=== PATIENT | male | born 1955 | race Caucasian/White ===

== ENCOUNTER 2023-11-21 10:30 | Emergency (ER) | payer MEDICARE, SELFPAY ==
[2023-11-21 10:40] VITALS: BP 145/75; PULSE 88; RESP 14; TEMP 36.9; O2SAT 99; BMI 27.8
--- NOTE | 2023-11-21 10:46 | DI.RAD.S_ITS ---
PROCEDURE: XR ELBOW RT MIN 3V INDICATIONS: atraumtic pain / swelling TECHNIQUE: 3 views of the elbow were acquired. COMPARISON: None. FINDINGS: Bones: No fractures or dislocations. No suspicious bony lesions. Periarticular osteophyte formation at the elbow joint. Soft tissues: There is an elbow joint effusion. No suspicious soft tissue calcifications. IMPRESSION: 1. Osteoarthritis. 2. Elbow joint effusion. 3. No acute fracture. No osseous lesion. If symptoms and/or clinical suspicion for pathology persist, further assessment with repeat, or advanced imaging (e.g., CT, MRI, or bone scan) may be helpful for further assessment. Dictated by: Holger Marroquin M.D. on 11/21/2023 at 11:18 Approved by: Holger Marroquin M.D. on 11/21/2023 at 11:18
[2023-11-21] MEDS: IBUPROFEN 400 MG TABLET PO (10:48)
[2023-11-21] MEDS: ACETAMINOPHEN 325 MG TABLET 975 MG PO (10:48)
[2023-11-21] MEDS: ONDANSETRON 4 MG ODT PO (10:51)
--- NOTE | 2023-11-21 11:23 | DI.US.S_ITS ---
PROCEDURE: US PERIPH VENOUS UP EXTREM RT INDICATIONS: RUE pain, swelling TECHNIQUE: Real-time imaging, as well as color and pulse Doppler interrogation, was performed of the upper extremity deep veins from the inferior neck to the antecubital fossa. COMPARISON: None. FINDINGS: The internal jugular vein, visualized portions of the subclavian vein, axillary, and brachial veins are free of intraluminal thrombus. Where physically possible, the veins are normally compressible. Color and pulse Doppler demonstrate normal intraluminal flow, with expected phasicity and pulsatility. Additional scanning of the cephalic and basilic veins of the superficial system demonstrates normal compressibility, without thrombus. IMPRESSION: No findings of upper extremity deep venous thrombosis can be seen. Dictated by: Darlyn Poole M.D. on 11/21/2023 at 12:06 Approved by: Darlyn Poole M.D. on 11/21/2023 at 12:07
--- NOTE | 2023-11-21 11:51 | ED_ITS ---
HPI - Extremity Problem <Gretel Naylor PA-C - Last Filed: 11/21/23 14:12> General Chief complaint: Extremity Problem,Nontraumatic Stated complaint: extreme pain rt elbow Time Seen by Provider: 11/21/23 11:13 Source: patient Mode of arrival: Ambulatory History of Present Illness HPI Narrative: Patient is a 68-year-old male w/ history of HTN who presents with a 2 days of nontraumatic right elbow pain. He reports waking up yesterday and noting that his elbow hurt. He denies any trauma, fall, recent overuse of the joint. The pain bothered him all day and then was worse when he woke up this morning. Now it is quite severe. He had not taken any medication or tried any therapy prior to coming to the emergency room. He knows he has osteoarthritis in some of his joints, no history of gout, rheumatoid arthritis. He denies fever or chills. The pain is worst over the right olecranon and radiates up to the mid biceps and down to the mid forearm. He also thinks there is some pain that is creeping to wards his hand. He feels that his elbow is swollen. He recently had COVID starting 10 days ago, feeling much better. No history of blood clots. Related Data Home Medications Medication Instructions Recorded Confirmed B-complex with vitamin C 1 tab PO DAILY 07/23/23 11/21/23 hydrochlorothiazide 12.5 mg capsule 12.5 mg PO DAILY 07/23/23 11/21/23 losartan 25 mg tablet 25 mg PO DAILY 07/23/23 11/21/23 magnesium PO 07/23/23 11/21/23 multivitamin with iron [Daily PO 07/23/23 11/21/23 Vitamin with Iron] omega-3 fatty acids [Fish Oil] PO 07/23/23 11/21/23 vitamins A,C,B-msml-wyrbog 4,296 1 cap PO BID 07/23/23 11/21/23 mcg-226 mg-90 mg capsule (ICaps AREDS) Allergies Allergy/AdvReac Type Severity Reaction Status Date / Time hydrocodone AdvReac Nausea Verified 11/21/23 10:10 oxycodone AdvReac Nausea Verified 11/21/23 10:10 Review of Systems <Gretel Naylor PA-C - Last Filed: 11/21/23 14:12> Review of Systems ROS Unobtainable: All systems reviewed & are unremarkable except as noted in HPI and below Patient History <Gretel Naylor PA-C - Last Filed: 11/21/23 14:12> Medical History Benign essential HTN Social History Smoking Status: Never smoker Smoking Status: Never smoker alcohol intake frequency: 0-2 drinks per day Substance Use Type: does not use Exam <Gretel Naylor PA-C - Last Filed: 11/21/23 14:12> Narrative Exam Narrative: GENERAL: 68 year old patient appears stated age. Well-developed patient, in mild distress, holding the right arm. NEURO: AOx3. HEAD: Atraumatic. Normocephalic. EYES: Pupils equal round and reactive. Extraocular motions intact. No scleral icterus. No injection or drainage. ENT: Nose without bleeding or purulent drainage. Airway patent. RESPIRATORY: No distress. EXTREMITIES: Trace edema of the right elbow, no erythema or warmth noted. Tissues are supple. The elbow and arm just above and below are tender with gentle squeezing but not tender to light palpation. Most severe pain is over the olecranon. There is no discrete area of edema or hematoma. Radial pulse is strong. [employer] Resource [employer] strength is equal in both hands. Patient is elbow flexion is limited by pain and extension is limited by previously existing arthritis/pain. SKIN: No rash or erythema of visible areas Initial Vital Signs Initial Vital Signs: Vital Signs Temperature 98.4 F 11/21/23 10:40 Pulse Rate 88 11/21/23 10:40 Respiratory Rate 14 11/21/23 10:40 Blood Pressure 145/75 H 11/21/23 10:40 Pulse Oximetry 99 11/21/23 10:40 Oxygen Delivery Method Room Air 11/21/23 10:40 <Sharee Bales MD - Last Filed: 11/21/23 14:56> Initial Vital Signs Initial Vital Signs: Vital Signs Temperature 98.4 F 11/21/23 10:40 Pulse Rate 88 11/21/23 10:40 Respiratory Rate 14 11/21/23 10:40 Blood Pressure 145/75 H 11/21/23 10:40 Pulse Oximetry 99 11/21/23 10:40 Oxygen Delivery Method Room Air 11/21/23 10:40 Course <Gretel Naylor PA-C - Last Filed: 11/21/23 14:12> Orders Ordered: ED Orders 11/21/23 10:46 XR elbow RT min 3V Stat 11/21/23 11:23 US periph venous up extrem rt Stat Discontinued Medications Acetaminophen (Acetaminophen 325 Mg Tablet) 975 mg PO NOW ONE Stop: 11/21/23 10:46 Last Admin: 11/21/23 10:48 Dose: 975 mg Documented By: ELODIA Ibuprofen (Ibuprofen 400 Mg Tablet) 400 mg PO NOW ONE Stop: 11/21/23 10:46 Last Admin: 11/21/23 10:48 Dose: 400 mg Documented By: ELODIA Ondansetron HCl (Ondansetron 4 Mg Odt) 4 mg PO NOW ONE Stop: 11/21/23 10:50 Last Admin: 11/21/23 10:51 Dose: 4 mg Documented By: ELODIA Vital Signs Vital signs: Vital Signs - 8 hr 11/21/23 10:40 11/21/23 12:34 Temperature 98.4 F Pulse Rate 88 68 Respiratory Rate 14 16 Blood Pressure 145/75 H 144/66 H Pulse Oximetry 99 99 Oxygen Delivery Method Room Air Room Air <Sharee Bales MD - Last Filed: 11/21/23 14:56> Orders Ordered: ED Orders 11/21/23 10:46 XR elbow RT min 3V Stat 11/21/23 11:23 US periph venous up extrem rt Stat Discontinued Medications Acetaminophen (Acetaminophen 325 Mg Tablet) 975 mg PO NOW ONE Stop: 11/21/23 10:46 Last Admin: 11/21/23 10:48 Dose: 975 mg Documented By: ELODIA Ibuprofen (Ibuprofen 400 Mg Tablet) 400 mg PO NOW ONE Stop: 11/21/23 10:46 Last Admin: 11/21/23 10:48 Dose: 400 mg Documented By: ELODIA Ondansetron HCl (Ondansetron 4 Mg Odt) 4 mg PO NOW ONE Stop: 11/21/23 10:50 Last Admin: 11/21/23 10:51 Dose: 4 mg Documented By: ELODIA Vital Signs Vital signs: Vital Signs - 8 hr 11/21/23 10:40 11/21/23 12:34 Temperature 98.4 F Pulse Rate 88 68 Respiratory Rate 14 16 Blood Pressure 145/75 H 144/66 H Pulse Oximetry 99 99 Oxygen Delivery Method Room Air Room Air MDM - Extremity (Nontraumatic) <Gretel Naylor PA-C - Last Filed: 11/21/23 14:12> Imaging Data US - DVT: Radiologist's Impression: PROCEDURE: US PERIPH VENOUS UP EXTREM RT INDICATIONS: RUE pain, swelling TECHNIQUE: Real-time imaging, as well as color and pulse Doppler interrogation, was performed of the upper extremity deep veins from the inferior neck to the antecubital fossa. COMPARISON: None. FINDINGS: The internal jugular vein, visualized portions of the subclavian vein, axillary, and brachial veins are free of intraluminal thrombus. Where physically possible, the veins are normally compressible. Color and pulse Doppler demonstrate normal intraluminal flow, with expected phasicity and pulsatility. Additional scanning of the cephalic and basilic veins of the superficial system demonstrates normal compressibility, without thrombus. IMPRESSION: No findings of upper extremity deep venous thrombosis can be seen. Dictated by: Darlyn Poole M.D. on 11/21/2023 at 12:06 Approved by: Darlyn Poole M.D. on 11/21/2023 at 12:07 Extremity x-ray #1: Radiologist's Impression: PROCEDURE: XR ELBOW RT MIN 3V INDICATIONS: atraumtic pain / swelling TECHNIQUE: 3 views of the elbow were acquired. COMPARISON: None. FINDINGS: Bones: No fractures or dislocations. No suspicious bony lesions. Periarticular osteophyte formation at the elbow joint. Soft tissues: There is an elbow joint effusion. No suspicious soft tissue calcifications. IMPRESSION: 1. Osteoarthritis. 2. Elbow joint effusion. 3. No acute fracture. No osseous lesion. If symptoms and/or clinical suspicion for pathology persist, further assessment with repeat, or advanced imaging (e.g., CT, MRI, or bone scan) may be helpful for further assessment. Dictated by: Holger Marroquin M.D. on 11/21/2023 at 11:18 Approved by: Holger Marroquin M.D. on 11/21/2023 at 11:18 [facility] Narrative Medical decision making narrative: Multiple etiologies for patient's symptoms considered including, but not limited to: Fracture, dislocation, olecranon bursitis, gout, effusion, DVT (recovering from covid), unlikely septic joint X-rays without evidence of fracture, +joint effusion. Ultrasound without evidence of DVT. Suspect bursitis. Advised rest, ice, compression, elevation and NSAIDs. If worsening or if not improved after 10 days of conservative management, advised to follow up with the Orthopedics. Return precautions given and education provided regarding signs of infection. Patient and state understanding. Patient's symptoms improved over duration of stay with above-stated therapies. Findings and discharge diagnosis discussed with patient/family followed by verbalization of understanding Return precautions discussed with patient/family whom verbalize understanding of diagnosis and plan Discharge Plan Departure Patient Disposition: Home Clinical Impression: Bursitis of right elbow Qualifiers: Elbow bursitis location: olecranon bursitis Qualified Code(s): M70.21 - Olecranon bursitis, right elbow Instructions: DI for Elbow Bursitis Activity Restrictions/Additional Instructions: *You have been diagnosed with bursitis of the right elbow. This occurs when the bursa, which is a fluid-filled pocket that pads the joint, becomes swollen with fluid. This can be due to arthritis or an overuse injury. The treatment for bursitis is rest, gentle compression, NSAIDs and time. I would take ibuprofen 600 mg with milk or a small amount of food every 6 hours for pain. We will provide you with a compression bandage you can use which can decrease the swelling and provide comfort. You should not use your elbow as this will increase inflammation and pain. If this is not improving after conservative treatment for 10 days, you can follow up with Orthopedics, I have listed their contact information below. If you develop a fever or the area becomes red and hot, you should come back for reassessment, as the bursa can get infected if there is an opening. Today we did an x-ray which does not show any fracture but does show fluid in the elbow, and we did an ultrasound which ruled out a DVT or blood clot. *What to do: *Please continue to take your regular medications as directed. [ ] New medication prescriptions sent to your pharmacy: [ ] [ ] New medication written as a paper prescription [x] No new medications given *Please follow up with your primary care provider in 2-3 days, call for an appointment. Let them know you were seen in the Emergency Department and that we ask that you be seen in follow up. We will electronically transmit a record of today's note if your PCP is in our system *If you do not have a primary care provider please contact the [facility] Resource line at [phone]. They will ask some questions about your medical history and help get you set up with a doctor in the community. *Return to Emergency Department if you should have any new, worsening or concerning symptoms, such as [fever greater than 101 F, shaking chills, worsening pain, persistent vomiting or other concerning symptoms]. Prescriptions: No Action losartan 25 mg tablet 25 mg PO DAILY hydrochlorothiazide 12.5 mg capsule 12.5 mg PO DAILY magnesium PO B-complex with vitamin C Tablet 1 tab PO DAILY ICaps AREDS 4,296 mcg-226 mg-90 mg capsule 1 cap PO BID multivitamin with iron [Daily Vitamin with Iron] PO omega-3 fatty acids [Fish Oil] PO Referrals: [facility] [Provider Group] Linus Kolb DO [Primary Care Provider] - Stand Alone Forms: Patient Portal/API ED Sign-out <Sharee Bales MD - Last Filed: 11/21/23 14:56> Cosign ED Attending Cosignature Attestation: I did not see this patient. I was available all times for consultation.
[2023-11-21 12:34] VITALS: BP 144/66; PULSE 68; RESP 16; O2SAT 99
--- NOTE | 2023-11-21 12:38 | PC.NURSE ---
Jr wrap applied to R arm. Pt and his education on how to gently wrap extremity
== END 2023-11-21 12:39 | disposition home or self-care (01) ==
PROVIDERS: Emergency Provider Physician Assistant; PCP Family Medicine
DX: M70.21 Olecranon bursitis, right elbow (principal)
CPT/HCPCS: 73080; 93971; 99283; 99284

== ENCOUNTER → 2024-02-19 15:30 | Outpatient (CLI) | payer MEDICARE, SELFPAY ==
[2024-02-19 16:04] LABS: Add Manual Diff / Slide Review NO; Basophils Absolute Auto 0 /uL (0-100); Basophils Percent Auto 0.6 % (0-2); Eosinophils Absolute Auto 100 /uL (0-450); Eosinophils Percent Auto 2.3 % (2-4); Lymphocytes Absolute Auto 1200 /uL (1100-4500); Lymphocytes Percent Auto 30.8 % (25-40); Mean Corpuscular HGB Conc 29.3 % (30-36); Mean Corpuscular Hemoglobin 20.4 PG (26-34); Mean Corpuscular Volume 69.8 fL (80-100); Monocytes Absolute Auto 500 /uL (0-900); Monocytes Percent Auto 11.6 % (3-14); Neutrophils Absolute Auto 2200 /uL (1500-7000); Neutrophils Percent Auto 54.7 % (50-75); Platelet Count 385 X10^3/uL (150-400); Red Blood Cell Count 3.15 X10^6/uL (4.5-5.9)
[2024-02-19 16:08] LABS: Hemoglobin 6.4 g/dL (13.5-17.5)
[2024-02-19 16:21] LABS: HEMOLYSIS < 15 (0-50); Iron 23 ug/dL (49-181)
[2024-02-19 16:22] LABS: Microcytosis 1+
[2024-02-19 16:34] LABS: Transferrin 350 mg/dL (206-381)
[2024-02-19 16:52] LABS: Percent Iron Saturation 5 % (20-50); Total Iron Binding Capacity 434 ug/dL (261-462)
[2024-02-19 21:04] LABS: Alanine Aminotransferase 28 IU/L (<50); Albumin Globulin Ratio 1.4 (1.0-2.8); Alkaline Phosphatase 76 U/L (38-126); Aspartate Aminotransferase 28 IU/L (17-59); Bilirubin Total 0.4 mg/dL (0.2-1.3); Blood Urea Nitrogen 20 mg/dL (9-20); Calcium 8.8 mg/dL (8.4-10.2); Carbon Dioxide 28 mmol/L (22-32); Chloride 108 mmol/L (98-107); Cholesterol 176 mg/dL (140-199); Estimated Glomerular Filt Rate > 60 mL/min (>60); Globulin 2.9 g/dL (1.7-4.1); Glucose 96 mg/dL (80-110); HDL Cholesterol 51 mg/dL (40-60); HEMOLYSIS < 15 (0-50); LDL Cholesterol Calculated 107 mg/dL (<100); Potassium 4.3 mmol/L (3.4-5.1); Sodium 139 mmol/L (137-145); Total Protein 6.9 g/dL (6.3-8.2); Triglycerides 91 mg/dL (35-150)
[2024-02-19 21:06] LABS: Hemoglobin A1C% w Est Avg Glu 5.4 % (4.0-6.0)
[2024-02-19 21:35] LABS: Ferritin 6 ng/mL (18-464)
[2024-02-19 21:50] LABS: Vitamin B12 > 1000 pg/mL (239-931)
== END ==
PROVIDERS: PCP Family Medicine; Referring Provider Family Medicine; Visit Provider Family Medicine
DX: G25.81 Restless legs syndrome (principal); I10 Essential (primary) hypertension; R06.09 Other forms of dyspnea; R53.82 Chronic fatigue, unspecified
CPT/HCPCS: 36415; 80053; 80061; 82607; 82728; 83036; 83540; 83550; 85025

== ENCOUNTER 2024-02-19 17:14 | Emergency (ER) | payer MEDICARE, SELFPAY ==
[2024-02-19] VITALS (18 sets, daily range): BP systolic 128–158; BP diastolic 62–82; PULSE 61–76; RESP 12–22; TEMP 36.4–36.9; O2SAT 96–100; BMI 27.8
--- NOTE | 2024-02-19 18:14 | ED.RECABL ---
HPI - Recheck/Abnormal Lab/Rx General Chief Complaint: Recheck/Abnormal Lab/Rx Stated Complaint: abnormal labs, sent by Dr Kolb Time Seen by Provider: 02/19/24 18:03 Source: patient Mode of arrival: Ambulatory History of Present Illness HPI narrative: 68yoM presents for abnormal labs. Patient states he has been told he is anemic since 1999. Last colonoscopy over 20 years ago. Patient states that 1 year ago he was told his hemoglobin was 7.9, reviewing his PCP notes from today his hemoglobin was 8.71 year prior. Patient denies dark or tarry stools, denies bleeding, denies use of blood thinners. Patient was following up with his PCP for restless legs, dyspnea, palpitations on exertion and laboratory work was drawn. Patient states that he got a call from his primary earlier this afternoon stating that his hemoglobin was critically low and he needed to come to the emergency department for transfusion. Related Data Home Medications Medication Instructions Recorded Confirmed B-complex with vitamin C 1 tab PO DAILY 07/23/23 02/19/24 hydrochlorothiazide 12.5 mg capsule 12.5 mg PO DAILY 07/23/23 02/19/24 losartan 25 mg tablet 25 mg PO DAILY 07/23/23 02/19/24 magnesium PO 07/23/23 02/19/24 multivitamin with iron [Daily PO 07/23/23 02/19/24 Vitamin with Iron] omega-3 fatty acids [Fish Oil] PO 07/23/23 02/19/24 vitamins A,C,H-xzdl-pidtbl 4,296 1 cap PO BID 07/23/23 02/19/24 mcg-226 mg-90 mg capsule (ICaps AREDS) valacyclovir 500 mg tablet 500 mg PO BID 02/19/24 02/19/24 Previous Rx's Medication Instructions Recorded valacyclovir 500 mg tablet 500 mg PO DAILY #90 tabs 02/19/24 (Valtrex) Allergies Allergy/AdvReac Type Severity Reaction Status Date / Time gabapentin AdvReac Intermediate AFFECTS Verified 02/19/24 17:51 THINKING hydrocodone AdvReac Nausea Verified 02/19/24 14:29 oxycodone AdvReac Nausea Verified 02/19/24 14:29 Review of Systems Review of Systems Narrative: Negative except as noted above Patient History Medical History (Updated 02/19/24 @ 22:07 by Sharee Bales MD) Microcytic anemia Benign essential HTN Social History Smoking Status: Never smoker Smoking Status: Never smoker alcohol intake frequency: 0-2 drinks per day Alcohol type: wine Substance Use Type: does not use Exam Initial Vital Signs Initial Vital Signs: Vital Signs Temperature 97.6 F 02/19/24 17:32 Pulse Rate 76 02/19/24 17:32 Respiratory Rate 18 02/19/24 17:32 Blood Pressure 128/62 02/19/24 17:32 Pulse Oximetry 100 02/19/24 17:32 Oxygen Delivery Method Room Air 02/19/24 17:32 Const: Awake, alert, fatigued, nontoxic appearing Cardiac: regular rate, regular rhythm RESP: unlabored, clear bilaterally, no wheezing Skin: Warm, Dry, pale Neuro: AO x3, CN II-XII grossly intact, moves all extremities Course Orders Ordered: ED Orders 02/19/24 17:39 EKG-12 Lead Stat 02/19/24 18:35 Complete Blood Count AUTO DIFF Stat Comprehensive Metabolic Panel Stat PTT Partial Thromboplastin [place] Stat Packed Cells Stat Prothrombin Time INR Stat Type and Screen Stat 02/19/24 19:03 Chest [XR chest 1V] Stat Ondansetron HCl (Ondansetron 4 Mg/2 Ml Inj) 4 mg IV NOW PRN PRN Reason: Nausea And Vomiting Ondansetron HCl (Ondansetron 4 Mg Odt) 4 mg SL NOW PRN PRN Reason: Nausea And Vomiting Discontinued Medications Pantoprazole Sodium (Pantoprazole 40 Mg Vial) 80 mg IV NOW ONE Stop: 02/19/24 17:40 Last Admin: 02/19/24 17:59 Dose: Not Given Documented By: ELODIA Vital Signs Vital signs: Vital Signs - 8 hr 02/19/24 17:32 02/19/24 19:25 02/19/24 19:28 Temperature 97.6 F Pulse Rate 76 70 68 Respiratory Rate 18 16 18 Blood Pressure 128/62 Pulse Oximetry 100 100 100 Oxygen Delivery Method Room Air Room Air Room Air 02/19/24 19:28 02/19/24 19:33 02/19/24 19:34 Temperature Pulse Rate 69 Respiratory Rate 16 Blood Pressure 154/72 H 158/74 H Pulse Oximetry 99 Oxygen Delivery Method Room Air 02/19/24 19:34 02/19/24 20:00 02/19/24 20:00 Temperature Pulse Rate 68 69 Respiratory Rate 13 15 Blood Pressure 141/71 H Pulse Oximetry 100 100 Oxygen Delivery Method Room Air Room Air 02/19/24 20:07 02/19/24 20:07 02/19/24 20:07 Temperature 98.2 F Pulse Rate 67 66 Respiratory Rate 16 17 Blood Pressure 137/82 137/82 Pulse Oximetry 100 Oxygen Delivery Method Room Air 02/19/24 20:25 02/19/24 20:25 02/19/24 20:25 Temperature 98.3 F Pulse Rate 64 65 Respiratory Rate 17 14 Blood Pressure 148/71 H 148/71 H Pulse Oximetry 100 Oxygen Delivery Method Room Air 02/19/24 20:25 02/19/24 20:30 02/19/24 20:30 Temperature 98.4 F Pulse Rate 66 62 Respiratory Rate 17 13 Blood Pressure 141/70 H 144/69 H Pulse Oximetry 100 Oxygen Delivery Method Room Air 02/19/24 21:00 02/19/24 21:00 02/19/24 21:30 Temperature Pulse Rate 61 Respiratory Rate 13 Blood Pressure 135/65 151/67 H Pulse Oximetry 100 Oxygen Delivery Method 02/19/24 21:30 02/19/24 22:00 02/19/24 22:00 Temperature Pulse Rate 66 62 Respiratory Rate 15 22 Blood Pressure 137/65 Pulse Oximetry 100 99 Oxygen Delivery Method Room Air 02/19/24 22:26 02/19/24 22:26 02/19/24 22:30 Temperature Pulse Rate 67 Respiratory Rate 14 Blood Pressure 141/70 H 144/75 H Pulse Oximetry 98 Oxygen Delivery Method Room Air 02/19/24 22:30 02/19/24 22:38 02/19/24 22:54 Temperature 98.3 F 98.1 F Pulse Rate 65 64 65 Respiratory Rate 21 16 18 Blood Pressure 144/75 H 155/68 H Pulse Oximetry 99 Oxygen Delivery Method Room Air 02/19/24 23:00 02/19/24 23:00 02/19/24 23:30 Temperature Pulse Rate 67 Respiratory Rate 12 Blood Pressure 131/71 149/71 H Pulse Oximetry 97 Oxygen Delivery Method Room Air 02/19/24 23:30 02/20/24 00:00 02/20/24 00:00 Temperature Pulse Rate 72 67 Respiratory Rate 14 12 Blood Pressure 144/66 H Pulse Oximetry 96 97 Oxygen Delivery Method Room Air Room Air MDM - Recheck/Abnormal Lab/Rx Differential Diagnosis Differential diagnosis: Likely encounter for medication refill, encounter for wound recheck and encounter for recheck of burn Lab Data 02/19/24 18:35 02/19/24 18:35 Labs: Lab Results 02/19/24 Range/Units 18:35 WBC 3.8 L (4.5-11.0) X10^3/uL RBC 3.08 L (4.5-5.9) X10^6/uL Hgb 6.2 L* (13.5-17.5) g/dL Hct 21.6 L (41-53) % MCV 70.2 L (80-100) fL MCH 20.2 L (26-34) PG MCHC 28.7 L (30-36) % RDW 19.3 H (11.6-14.8) % Plt Count 363 (150-400) X10^3/uL Neut % (Auto) 57.5 (50-75) % Lymph % (Auto) 29.2 (25-40) % [place] % (Auto) 8.9 (3-14) % Eos % (Auto) 3.3 (2-4) % Baso % (Auto) 1.1 (0-2) % Neut # (Auto) 2200 (7794-0205) /uL Lymph # (Auto) 1100 (7787-6305) /uL [place] # (Auto) 300 (0-900) /uL Eos # (Auto) 100 (0-450) /uL Baso # (Auto) 0 (0-100) /uL PT 12.0 (9.4-12.5) SECONDS INR 1.0 (0.9-1.3) APTT 30 (25.1-36.5) SECONDS Sodium 139 (137-145) mmol/L Potassium 3.5 (3.4-5.1) mmol/L Chloride 106 (98-107) mmol/L Carbon Dioxide 31 (22-32) mmol/L BUN 20 (9-20) mg/dL Creatinine 0.79 (0.66-1.25) mg/dL Estimated GFR > 60 (>60) mL/min BUN/Creatinine Ratio 25.3 H (6-22) Glucose 134 H (80-110) mg/dL Calcium 8.7 (8.4-10.2) mg/dL Total Bilirubin 0.4 (0.2-1.3) mg/dL AST 26 (17-59) IU/L ALT 26 (<50) IU/L Alkaline Phosphatase 70 (38-126) U/L Total Protein 6.8 (6.3-8.2) g/dL Albumin 4.0 (3.5-5.0) g/dL Globulin 2.8 (1.7-4.1) g/dL Albumin/Globulin Ratio 1.4 (1.0-2.8) Blood Type O Positive Antibody Screen Negative Crossmatch See Detail Urine Dip Bedside Urine Glucose Negative Bedside Urine Bilirubin - Negative Bedside Urine Ketone - Negative Urine Specific [place] 1.025 Bedside Urine Occult Blood - Negative Bedside Urine pH 6 Bedside Urine Protein - Negative Bedside Urine Urobilinogen - Negative Bedside Urine Nitrite - Negative Bedside Urine Leukocytes - Negative Esterase MDM Narrative Medical decision making narrative: Patient with longstanding anemia presenting for critically low hemoglobin. No recent priors in her system, however per patient report as well as PCP note patient has had hemoglobin less than 9 for at least 1 year. Patient reports anemia for the last 20 years. He was hemodynamically stable, appears somewhat fatigued but in no acute distress. Repeat labs show WBC count 3.8, hemoglobin 6.2, platelet count 363, INR 1.0, sodium 139, potassium 3.5, creatinine 0.79. Patient transfused 2 units of blood and feels improved. He was advised to follow up with his primary care physician, and mentioned that a Heme-Onc consult may be beneficial due to his longstanding anemia. He was encouraged to continue to take his iron supplements. Critical Care Time Critical Care Time Critical Care Time: Yes Total Critical Care Time: 33 Attestation: Anemia requiring transfusion of packed red blood cells Discharge Plan Departure Patient Disposition: Home Clinical Impression: Anemia Instructions: Anemia Activity Restrictions/Additional Instructions: Continue to take your iron supplements. It may be beneficial for you to see a Heme-Onc doctor. Please follow up closely with your primary care physician for further workup of your anemia Prescriptions: No Action losartan 25 mg tablet 25 mg PO DAILY hydrochlorothiazide 12.5 mg capsule 12.5 mg PO DAILY magnesium PO B-complex with vitamin C Tablet 1 tab PO DAILY ICaps AREDS 4,296 mcg-226 mg-90 mg capsule 1 cap PO BID multivitamin with iron [Daily Vitamin with Iron] PO omega-3 fatty acids [Fish Oil] PO valacyclovir 500 mg tablet 500 mg PO BID valacyclovir [Valtrex] 500 mg tablet 500 mg PO DAILY Qty: 90 3RF Referrals: Linus Kolb DO [Primary Care Provider] - Stand Alone Forms: Patient Portal/API
[2024-02-19 18:46] LABS: Add Manual Diff / Slide Review NO; Basophils Absolute Auto 0 /uL (0-100); Basophils Percent Auto 1.1 % (0-2); Eosinophils Absolute Auto 100 /uL (0-450); Eosinophils Percent Auto 3.3 % (2-4); Hematocrit 21.6 % (41-53); Lymphocytes Absolute Auto 1100 /uL (1100-4500); Lymphocytes Percent Auto 29.2 % (25-40); Mean Corpuscular HGB Conc 28.7 % (30-36); Mean Corpuscular Hemoglobin 20.2 PG (26-34); Mean Corpuscular Volume 70.2 fL (80-100); Monocytes Absolute Auto 300 /uL (0-900); Monocytes Percent Auto 8.9 % (3-14); Neutrophils Absolute Auto 2200 /uL (1500-7000); Neutrophils Percent Auto 57.5 % (50-75); Platelet Count 363 X10^3/uL (150-400); Red Blood Cell Count 3.08 X10^6/uL (4.5-5.9); Red Cell Distribution Width 19.3 % (11.6-14.8); White Blood Cell Count 3.8 X10^3/uL (4.5-11.0)
[2024-02-19 18:48] LABS: Hemoglobin 6.2 g/dL (13.5-17.5)
[2024-02-19 18:55] LABS: PTT Partial Thromboplastin Tim 30 SECONDS (25.1-36.5)
--- NOTE | 2024-02-19 19:03 | DI.RAD.S_ITS ---
PROCEDURE: XR CHEST 1V INDICATIONS: DYSPNEA, UNEXPLAINED ANEMIA TECHNIQUE: One view of the chest was acquired. COMPARISON: None. FINDINGS: Surgical changes and devices: None. Lungs and pleura: Lungs are clear. No pleural effusions or pneumothorax. Mediastinum: Mediastinal contours appear normal. Heart size is normal. Bones and chest wall: No suspicious bony lesions. Overlying soft tissues appear unremarkable. IMPRESSION: No acute cardiopulmonary abnormality is seen. Dictated by: Keon Renteria M.D. on 02/19/2024 at 20:01 Approved by: Keon Renteira M.D. on 02/19/2024 at 20:01
[2024-02-19 19:18] LABS: Alanine Aminotransferase 26 IU/L (<50); Albumin Globulin Ratio 1.4 (1.0-2.8); Alkaline Phosphatase 70 U/L (38-126); Aspartate Aminotransferase 26 IU/L (17-59); BUN Creatinine Ratio 25.3 (6-22); Bilirubin Total 0.4 mg/dL (0.2-1.3); Blood Urea Nitrogen 20 mg/dL (9-20); Calcium 8.7 mg/dL (8.4-10.2); Carbon Dioxide 31 mmol/L (22-32); Chloride 106 mmol/L (98-107); Estimated Glomerular Filt Rate > 60 mL/min (>60); Globulin 2.8 g/dL (1.7-4.1); Glucose 134 mg/dL (80-110); HEMOLYSIS < 15 (0-50); Potassium 3.5 mmol/L (3.4-5.1); Sodium 139 mmol/L (137-145); Total Protein 6.8 g/dL (6.3-8.2)
[2024-02-20] VITALS: BP 144/66; PULSE 67; RESP 12; O2SAT 97
== END 2024-02-20 00:43 | disposition home or self-care (01) ==
PROVIDERS: Emergency Provider Emergency Medicine; PCP Family Medicine
DX: D64.9 Anemia, unspecified (principal); G25.81 Restless legs syndrome; I10 Essential (primary) hypertension; R06.09 Other forms of dyspnea; R53.82 Chronic fatigue, unspecified
CPT/HCPCS: 36415; 36430; 71045; 80053; 80061; 81003; 82607; 82728; 83036; 83540; 83550; 85025; 85610; 85730; 86850; 86900; 86901; 99284; P9016

== ENCOUNTER → 2024-02-26 15:09 | Outpatient (CLI) | payer MEDICARE, SELFPAY ==
--- NOTE | 2024-02-26 19:52 | DI.NM.S_ITS ---
DATE OF SERVICE: 02/26/2024 PROCEDURE: Exercise stress test. INDICATIONS: Shortness of breath. The patient has a history of iron- deficiency anemia status post blood transfusion and hypertension. CARDIAC STRESS: The patient underwent exercise stress test under the supervision of an attending staff. He walked on Leonardo protocol for 4 minutes and 18 seconds, had shortness of breath. No chest pain. Resting blood pressure 132/80 and peak blood pressure 158/74, achieved 5.3 METS of workload and TERRELL positive 35%. Baseline rhythm sinus with nonspecific ST-T changes. During peak exercise, there were some upsloping, about 1 mm, ST depression in inferior leads, as well as about [address] depression in V3 to V6. Within 1 minute in recovery, those changes got slightly improved, but again, the patient developed horizontal ST depression in the inferolateral leads, which persisted more than 5 minutes in recovery. CONCLUSION: This is an abnormal myocardial perfusion study with evidence of inducible ischemia. Normal blood pressure response. Poor exercise tolerance. TERRELL positive 35%. No chest pain. The patient has a history of iron-deficiency anemia, required blood transfusion. If the patient is still anemic, will recommend repeating exercise stress test with imaging modality, like exercise perfusion study or exercise stress echo once anemia gets completely resolved for further coronary artery disease diagnosis and risk stratification. Correlate clinically. Giovani Abarca - JAYLENE/mark/ISREAL doc#: [id number]/job#: [id number] dd: 02/26/2024 17:10:00 dt: 02/26/2024 19:07:00 DICTATING MD/COPIES TO: Jazz Barboza MD COPIES MNE: TATE;
[2024-02-28 18:36] LABS: Fecal Immunochemical Test Negative (Negative)
== END ==
PROVIDERS: PCP Family Medicine; Referring Provider Family Medicine; Visit Provider Family Medicine
DX: R94.39 Abnormal result of other cardiovascular function study (principal); R06.09 Other forms of dyspnea; G25.81 Restless legs syndrome; I10 Essential (primary) hypertension; R53.82 Chronic fatigue, unspecified
CPT/HCPCS: 82274; 93017

== ENCOUNTER 2024-03-21 14:02 | Day surgery (SDC) | payer MEDICARE, SELFPAY ==
[2024-03-21] VITALS (7 sets, daily range): BP systolic 130–155; BP diastolic 72–83; PULSE 60–92; RESP 11–18; TEMP 36.6–37.1; O2SAT 96–99
[2024-03-21] MEDS: LACTATED RINGERS 1,000 ML 42 ML IV (14:25)
--- NOTE | 2024-03-21 15:14 | PM.HP.1 ---
History of Present Illness History of Present Illness Date Patient Seen: 03/21/24 Time Patient Seen: 15:14 Chief complaint: SDC Narrative: 68-year-old male with anemia here for diagnostic upper and lower endoscopy. Previously normal colonoscopy 4 years ago. No rectal bleeding abdominal pain unintentional weight loss. FORMERLY [facility] Medical History Microcytic anemia Benign essential HTN Social History Smoking Status: Never smoker alcohol intake: current Meds Home Medications and Allergies Home Medications Medication Instructions Recorded Confirmed Type B-complex with vitamin C 1 tab PO DAILY 07/23/23 03/21/24 History hydrochlorothiazide 12.5 mg capsule 12.5 mg PO DAILY 07/23/23 03/21/24 History losartan 25 mg tablet 25 mg PO DAILY 07/23/23 03/21/24 History magnesium PO 07/23/23 03/04/24 History multivitamin with iron [Daily PO 07/23/23 03/04/24 History Vitamin with Iron] omega-3 fatty acids [Fish Oil] PO 07/23/23 03/04/24 History vitamins A,C,Y-stkj-xyefwk 4,296 1 cap PO BID 07/23/23 03/21/24 History mcg-226 mg-90 mg capsule (ICaps AREDS) valacyclovir 500 mg tablet 500 mg PO DAILY #90 tabs 02/19/24 03/04/24 Rx (Valtrex) ferumoxytol 510 mg/17 mL (30 510 mg (17 mL) IV Q7D 2 doses #17 03/04/24 03/21/24 Rx mg/mL) intravenous solution mL (Feraheme) Allergies Allergy/AdvReac Type Severity Reaction Status Date / Time hydrocodone AdvReac Nausea Verified 03/21/24 14:26 oxycodone AdvReac Nausea Verified 03/21/24 14:26 Exam Vital Signs (past 8 hours): - 03/21/24 14:43 Temperature 98 F Pulse Rate 92 H Respiratory Rate 18 Blood Pressure 130/83 Pulse Oximetry 99 Oxygen Delivery Method Room Air Oxygen Delivery Method Room Air Narrative Exam Narrative: General adult man alert oriented no acute distress Chest nonlabored respiration Extremities warm well perfused Assessment & Plan Assessment & Plan narrative: Diagnostic colonoscopy and esophagogastroduodenoscopy indicated for workup of anemia. Technical details were discussed. Risks, benefits, alternatives explained. Risks including but not limited to myocardial infarction, aspiration, bleeding, pain, missed lesion, incomplete examination, need for further radiographic studies, intestinal injury, and need for major abdominal surgery were discussed. All questions were answered to their satisfaction, and they are in agreement with this plan.
--- NOTE | 2024-03-21 15:49 | PM.OP.EC ---
Operative Date/Time/Diagnoses Date of procedure: 03/21/24 Time of procedure: 15:49 Pre-op diagnosis: Anemia Procedure & Clinicians Study performed: Diagnostic esophagogastroduodenoscopy and colonoscopy Same procedure as scheduled: Yes Indications: Anemia Surgeon: Samuel Peguero Procedure Notes Procedure in detail: The history and physical was performed/updated and the patient is ASA class is 2. The procedure was discussed in detail with the patient. Potential risks complications including infection, bleeding, missed diagnosis, perforation, need for surgery, and were explained. Their questions were answered and informed consent was obtained. Patient placed in left lateral decubitus position. Time out was performed. Procedural sedation was administered by Anesthesia. A bite block was placed. the scope was inserted into the mouth and advanced through the esophagus and into the stomach. the pylorus was intubated and the duodenum was examined to the 2nd portion.. The scope was retroflexed within the stomach. The stomach was then decompressed and scope pulled back to the GE junction. The scope was then removed Examination began with a thorough inspection of the perianal area there was no evidence of fissures, fistulae, external hemorrhoids or cutaneous malignancy. The colonoscopy scope was then placed into the anal canal and was advanced to the cecum, which was identified by the ileocecal valve, the appendiceal orifice and the confluence of the taenia. The scope was then slowly withdrawn examining colon thoroughly in all directions, irrigating it of any residual stool. FINDINGS -hiatal hernia moderate size -schmidt diverticulosis -internal hemorrhoids The patient tolerated the procedure well. They will be discharged once criteria are met. The prep was of fair quality. The withdrawl time was 6 minutes. Specimen(s): none sent Impression: Anemia is unexplained by endoscopic findings Post-procedure Recommendations: High fiber diet Disposition: same day surgery
== END 2024-03-21 16:20 | disposition home or self-care (01) ==
PROVIDERS: PCP Family Medicine; Referring Provider Surgery; Visit Provider Surgery
PROC: 0DJ08ZZ Inspection of Upper Intestinal Tract, Via Natural or Artificial Opening Endoscopic (ICD-10-PCS; CPT 43235; principal; 2024-03-21 15:30)
PROC: 0DJD8ZZ Inspection of Lower Intestinal Tract, Via Natural or Artificial Opening Endoscopic (ICD-10-PCS; CPT 45378; 2024-03-21 15:30)
DX: D50.9 Iron deficiency anemia, unspecified (principal); K57.30 Diverticulosis of large intestine without perforation or abscess without bleeding; K64.8 Other hemorrhoids; K44.9 Diaphragmatic hernia without obstruction or gangrene
CPT/HCPCS: 45378; 43235; J2250; J2704

== ENCOUNTER → 2024-06-11 13:55 | Outpatient (CLI) | payer MEDICARE, SELFPAY ==
--- NOTE | 2024-06-11 13:56 | DI.RAD.S_ITS ---
PROCEDURE: XR FOOT LT MIN 3V INDICATIONS: Left foot pain TECHNIQUE: 3 views of the foot were acquired. COMPARISON: None. FINDINGS: Bones: No fractures or dislocations. No suspicious bony lesions. There is a relatively large plantar fascia insertion spur on the posterior calcaneus. Mild metatarsus primus varus without hallux valgus morphology. Soft tissues: No tibiotalar joint effusion. Achilles tendon appears normal. IMPRESSION: Podiatry related findings as discussed, no trauma found. Dictated by: Arvind Arvizu M.D. on 06/11/2024 at 15:42 Approved by: Arvind Arvizu M.D. on 06/11/2024 at 15:43
== END ==
PROVIDERS: PCP Family Medicine; Referring Provider Nurse Practitioner Family; Visit Provider Nurse Practitioner Family
DX: M21.172 Varus deformity, not elsewhere classified, left ankle (principal); M77.32 Calcaneal spur, left foot; M79.672 Pain in left foot
CPT/HCPCS: 73630

== ENCOUNTER → 2024-07-11 12:16 | Outpatient (CLI) | payer MEDICARE, SELFPAY ==
--- NOTE | 2024-07-11 12:17 | DI.MRI.S_ITS ---
PROCEDURE: MRFOOT LT WO CON INDICATIONS: PAIN IN LEFT FOOT TECHNIQUE: Multiphasic, multisequence MRI of the forefoot was performed, without intravenous contrast administration. COMPARISON: [facility], CR, XR FOOT LT MIN 3V, 06/11/2024, 14:00. FINDINGS: Image quality: Excellent. Bones and joints: Marrow edema and linear hypointense signal involving 2nd metatarsal base is seen suggestive of nondisplaced fracture in this area. Mild edema is also seen in adjacent 3rd metatarsal base with linear T2 hyperintense signal concerning for stress fracture. Edema is also seen involving middle cuneiform without discrete fracture line. No other area of abnormal marrow signal is seen. Mild to moderate midfoot and forefoot joint osteoarthritic changes are seen more notably involving 1st through 5th TMT joints. Soft tissues: Mild edema involving visualized plantar foot muscles suggestive of muscle strain. No intramuscular fluid collection or mass. Extensor and flexor tendons are grossly intact. Principal Lisfranc ligament is intact. IMPRESSION: 1. Finding is suggestive of nondisplaced fracture or stress fracture involving 2nd and possibly 3rd metatarsal bases. Bony contusion involving distal middle cuneiform. 2. 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 No other fracture or dislocation. 3. Mild muscle strain involving visualized plantar foot muscles. Extensor and flexor tendons are intact. No soft tissue mass or drainable fluid collection. Dictated by: Tim Islas M.D. on 07/11/2024 at 17:46 Approved by: Tim Islas M.D. on 07/11/2024 at 17:49
== END ==
PROVIDERS: PCP Family Medicine; Referring Provider Physician Assistant Surgical; Visit Provider Physician Assistant Surgical
DX: S96.912A Strain of unspecified muscle and tendon at ankle and foot level, left foot, initial encounter (principal); S90.32XA Contusion of left foot, initial encounter; M19.072 Primary osteoarthritis, left ankle and foot; M79.672 Pain in left foot; X58.XXXA Exposure to other specified factors, initial encounter
CPT/HCPCS: 73718

== ENCOUNTER → 2024-09-09 16:28 | Outpatient (CLI) | payer MEDICARE, SELFPAY ==
--- NOTE | 2024-09-09 16:29 | DI.MRI.S_ITS ---
PROCEDURE: MR ANKLE LT WO CON INDICATIONS: LEFT PERONEAL TENDONOSIS TECHNIQUE: Noncontrast sagittal T1 spin echo and T2 fast spin echo with fat saturation, axial proton density fast spin echo and T2 fast spin echo with fat saturation, coronal T1 spin echo and T2 fast spin echo with fat saturation through the ankle/hindfoot. COMPARISON: [facility], MR, MR FOOT LT WO CON, 07/11/2024, 12:27. [facility], CR, XR FOOT 3 VIEWS WEIGHT BEARING LEFT, 08/01/2024, 16:23. FINDINGS: Image quality: Excellent. Bones and joints: Soft tissue swelling around distal lower leg extending to midfoot and hindfoot is seen. No discrete drainable fluid collection. There is mild to moderate midfoot and hindfoot joint osteoarthritis most notably involving 2nd through 4th TMT joints. No fracture or dislocation. No hindfoot coalitions. No osteochondral injuries of the talar dome. Well-defined plantar calcaneal enthesophyte is seen. Small amount of tibiotalar joint effusion, no loose bodies. Medial structures: The posterior tibialis, flexor digitorum longus, and flexor hallucis longus tendons are intact. Small amount of fluid distending tendon sheath of posterior tibialis tendon at the level of mid to distal talus and talonavicular joint is seen. The posterior tibial neurovascular bundle appears normal within the tarsal tunnel, without extrinsic mass effect. The deltoid ligament and spring ligament are thickened near their distal insertions. Lateral structures: The anterior talofibular, calcaneofibular, and posterior talofibular ligaments appear intact. More superiorly, the anterior and posterior tibiofibular ligaments appear intact, as is the intermalleolar ligament. The tibiofibular syndesmosis is normal in width at 2 mm or less. The peroneus longus and brevis tendons are mildly thickened with fluid distending tendon sheath at the level of lateral malleolus extending to their distal insertions. Heterogeneous T2 hyperintense signal within thickened peroneus longus tendon at the level of cuboid metatarsal bases is seen. No gross signal abnormality is seen within sinus tarsi. Anterior structures: The tibialis anterior, extensor hallucis longus, and extensor digitorum longus tendons appear intact. The dorsal talonavicular ligament appears intact. Posterior and plantar structures: Achilles tendon is intact. Thickened the medial band of plantar fascia at its plantar calcaneal insertion is seen with surrounding edema. No abductor digiti quinti muscle atrophy to suggest Carrillo neuropathy. IMPRESSION: 1. Mild soft tissue swelling and edema around distal lower leg extending to midfoot and hindfoot. No discrete drainable fluid collection. [id number] midfoot and hindfoot joint osteoarthritis most notably involving TMT joints. No acute fracture or dislocation. No osteochondral injuries of talar dome. Well-defined plantar calcaneal enthesophyte. Small joint effusion, no loose bodies. 2. Low-grade tenosynovitis involving posterior tibialis tendon at the level of mid to distal talus and talonavicular joint. 3. Moderate grade tenosynovitis involving peroneus tendons with low to moderate grade intrasubstance partial-thickness tear involving peroneus longus tendon at the level of cuboid extending to its distal insertion. 4. Low-grade medial ankle ligament sprain. Lateral ankle ligaments are intact. 5. Thickened medial band of plantar fascia concerning for low-grade plantar fasciitis. Dictated by: Tim Islas M.D. on 09/10/2024 at 11:38 Approved by: Tim Islas M.D. on 09/10/2024 at 11:59
== END ==
LOC: MRI 16:29
PROVIDERS: PCP Family Medicine; Referring Provider Orthopaedic Surgery Foot and Ankle Surgery; Visit Provider Orthopaedic Surgery Foot and Ankle Surgery
DX: M67.88 Other specified disorders of synovium and tendon, other site (principal); S93.492A Sprain of other ligament of left ankle, initial encounter; M19.072 Primary osteoarthritis, left ankle and foot; M65.972 Unspecified synovitis and tenosynovitis, left ankle and foot; M77.32 Calcaneal spur, left foot; M79.89 Other specified soft tissue disorders
CPT/HCPCS: 73721

== ENCOUNTER → 2024-12-01 12:47 | Outpatient (CLI) | payer MEDICARE, SELFPAY ==
--- NOTE | 2024-12-01 12:58 | DI.MRI.S_ITS ---
PROCEDURE: MR ANKLE LT WO CON INDICATIONS: RUPTURE OF PERONEAL TENDON OF LEFT FOOT TECHNIQUE: Noncontrast sagittal T1 spin echo and T2 fast spin echo with fat saturation, axial proton density fast spin echo and T2 fast spin echo with fat saturation, coronal T1 spin echo and T2 fast spin echo with fat saturation through the ankle/hindfoot. COMPARISON: [facility], MR, MR ANKLE LT WO CON, 09/09/2024, 17:10. FINDINGS: Image quality: Excellent. Bones and joints: There is soft tissue swelling around distal lower leg extending to hindfoot and midfoot. No discrete drainable fluid collection. [id number] midfoot and hindfoot joint osteoarthritis. No fracture or dislocation. No osteochondral injuries of talar dome. Small to moderate tibiotalar joint effusion, no gross loose bodies. Medial structures: The posterior tibialis tendon is mildly thickened at the level of distal talus and talonavicular joint with small amount of fluid distending tendon sheath. The flexor digitorum longus, and flexor hallucis longus tendons are intact. The posterior tibial neurovascular bundle appears normal within the tarsal tunnel, without extrinsic mass effect. The deltoid ligament and spring ligament are intact. Lateral structures: The anterior talofibular and calcaneofibular ligaments are intact. The posterior talofibular ligament is thickened with subtle intrasubstance T2 hyperintense signal. More superiorly, the anterior and posterior tibiofibular ligaments appear intact, as is the intermalleolar ligament. The tibiofibular syndesmosis is normal in width at 2 mm or less. Moderately thickened peroneus longus and brevis tendons at the level of lateral malleolus with small to moderate amount of fluid distending tendon sheath and intrasubstance T2 hyperintense signal. There is suggestion of ruptured peroneus brevis tendon approximately 1.1 cm from its insertion on 5th metatarsal base with proximal retraction of torn tendon fibers to the level of mid calcaneus. Moderate amount of surrounding fluid and edema is seen. Moderate to high-grade partial-thickness tear involving peroneus longus tendon at the level of distal calcaneus and calcaneocuboid joint is seen with surrounding fluid and edema. No gross signal abnormality is seen within the sinus tarsi. Anterior structures: The tibialis anterior, extensor hallucis longus, and extensor digitorum longus tendons appear intact. The dorsal talonavicular ligament appears intact. Posterior and plantar structures: Achilles tendinosis is seen. No Achilles tendon rupture. Thickened medial band of plantar fascia is seen near its calcaneal insertion . No abductor digiti quinti muscle atrophy to suggest Carrillo neuropathy. IMPRESSION: 1. Significant soft tissue swelling and edema surrounding distal lower leg extending to hindfoot and midfoot. No drainable fluid collection. 2. Zsvi-fy-vquomiad midfoot and hindfoot joint osteoarthritis. No acute fracture or dislocation. No osteochondral injuries of talar dome. Small to moderate tibiotalar joint effusion, no loose bodies. 3. Low-grade tenosynovitis involving posterior tibialis tendon at the level of distal talus and talonavicular joint. 4. Full-thickness rupture involving distal peroneus brevis tendon approximately 1.1 cm from its insertion on 5th metatarsal base with proximal retraction of torn tendon fibers to the level of mid calcaneus and moderate surrounding edema and intrasubstance T2 hyperintense signal. 5. Moderate to high-grade partial-thickness tear involving peroneus longus tendon most notably at the level of distal calcaneus/calcaneocuboid joint as above. 6. Mild Achilles tendinitis. No full-thickness Achilles tendon rupture. 7. Thickened medial band of plantar fascia suggestive of low to moderate grade plantar fasciitis. Dictated by: Tim Islas M.D. on 12/01/2024 at 17:56 Approved by: Tim Islas M.D. on 12/01/2024 at 18:03
== END ==
LOC: MRI 12:48
PROVIDERS: PCP Family Medicine; Referring Provider Orthopaedic Surgery Foot and Ankle Surgery; Visit Provider Orthopaedic Surgery Foot and Ankle Surgery
DX: S86.312A Strain of muscle(s) and tendon(s) of peroneal muscle group at lower leg level, left leg, initial encounter (principal); M19.072 Primary osteoarthritis, left ankle and foot; M76.62 Achilles tendinitis, left leg; M79.89 Other specified soft tissue disorders; R60.0 Localized edema; M25.475 Effusion, left foot; X58.XXXA Exposure to other specified factors, initial encounter
CPT/HCPCS: 73721

== ENCOUNTER 2024-12-24 09:48 | Day surgery (SDC) | payer MEDICARE, SELFPAY ==
[2024-12-17 11:54] VITALS: BMI 27.3
--- NOTE | 2024-12-24 | DI.RAD.S_ITS ---
PROCEDURE: XR FOOT LT 2V INDICATIONS: LEFT FOOT ORIF construction of peroneal tendon TECHNIQUE: Two views of the foot were acquired. COMPARISON: [facility], CR, XR FOOT LT MIN 3V, 06/11/2024, 14:00. FINDINGS: Bones: Very limited digital exam including a portion of the midfoot shows a metallic external device partially obscuring the lateral aspect of the midfoot. No gross osseous abnormality. Joints: The joint spaces are normal in width and alignment without arthritic change. Soft tissues: No soft tissue abnormality. IMPRESSION: Negative very limited intraoperative digital exam of the midfoot Dictated by: Chris Arambula M.D. on 12/25/2024 at 11:47 Approved by: Chris Arambula M.D. on 12/25/2024 at 11:48
[2024-12-24] MEDS: ACETAMINOPHEN 325 MG TABLET 975 MG PO (10:23)
[2024-12-24 10:26] VITALS: BMI 27.5
[2024-12-24] MEDS: LACTATED RINGERS 1,000 ML 42 ML IV (10:26)
[2024-12-24 10:47] VITALS: BP 143/83; PULSE 75; RESP 18; TEMP 36.6; O2SAT 99
--- NOTE | 2024-12-24 11:36 | PM.PREOP ---
Pre-operative Note Interval Note History & Physical reviewed/Exam performed by Physician: Yes Changes to H&P: No
--- NOTE | 2024-12-24 12:05 | SUR.PREOP ---
Time out 1152. Block start time 1156 . Monitoring initiated and maintained throughout procedure. Oxygen and medications given by anesthesiologist Patient remained stable throughout procedure, no adverse reactions noted. Block end time 1200
[2024-12-24] MEDS: CEFAZOLIN 2 GM/100 ML PREMIX 100 ML IV (12:20)
--- NOTE | 2024-12-24 12:38 | SUR.OPER ---
Lateral on a guevara bag, head on pillow, gel axillary roll in place, bottom leg bent with gel pad under knee to foot, upper leg straight and supported with pillows. Upper arm supported by pillows and secured over bottom arm to padded arm board. Safety belt at hip, tape over blanket lower legs.
[2024-12-24] MEDS: BUPIVACAINE 0.25% W/ EPI 30 ML VIAL 60 ML INJ (12:44)
[2024-12-24 14:55] VITALS: BP 128/78; PULSE 85; RESP 12; TEMP 36.3; O2SAT 97
[2024-12-24 15:00] VITALS: BP 130/70; PULSE 89; RESP 11; TEMP 36.2; O2SAT 97
[2024-12-24 15:06] VITALS: BP 150/89; PULSE 88; RESP 12; TEMP 36.2; O2SAT 96
[2024-12-24] MEDS: hydrOXYzine 50 MG/ML INJ 25 MG IM (15:12)
[2024-12-24] MEDS: HYDROMORPHONE 2 MG TABLET PO (15:12)
[2024-12-24] MEDS: ONDANSETRON 4 MG/2 ML INJ IV (15:12)
--- NOTE | 2024-12-24 15:12 | P.OP_ITS ---
Operative Date/Time/Diagnoses Date of procedure: 12/24/24 Time of procedure: 15:12 Pre-op diagnosis: Peroneal tendon rupture left Post-op diagnosis: same Procedure & Clinicians Procedure: Reconstruction peroneal tendon left lower extremity secondary reconstruction with graft CPT code 89832 Modifier [id number] for more extensive procedure Same procedure as scheduled: Yes Indications: Patient was a 69-year-old male gentleman that has a history of a peroneus longus to brevis transfer in early October he was doing well until about a month after surgery felt a pop around his lateral foot that radiated up to his calf. He developed swelling and pain and burning. Repeat MRI demonstrated tearing in rupture of the peroneus brevis at the distal insertion he was indicated for surgery for peroneal tendon reconstruction with allograft due to severe tendinosis and now tearing of both peroneal tendons. The risks and benefits of the procedure have been discussed with the patient and given the opportunity to ask questions. The risks of surgery include but are not limited to infection, malunion, nonunion, persistence of pain, damage to nerves and blood vessels, posttraumatic arthritis, DVT, PE, coardiopulmonary complications and . The patient expressed a thorough understanding of the risks and benefits of surgery and has elected to proceed. Consent was signed Surgeon: Bri Mcdonald Click Yes if Unassisted: Yes Anesthesia Type: General, Peripheral nerve block and Local Operative Notes Findings: Extensive scarring from the level of the lateral malleolus to the 5th metatarsal base involving extensive longitudinal tearing of the peroneus brevis tendon. There were a few fibers in continuity with C 5th metatarsal base and then extensive tearing and flattening and scarring from the base of the 5th metatarsal nearly to the lateral malleolus. The area of the previous peroneus longus tenodesis is scarred in. The incision was extended proximally 4 cm above the lateral malleolus to identify the remaining intact peroneus longus and brevis tendons. There was extensive tendinosis. And tenosynovitis. This was debrided then the remainder of the peroneus longus from the previous tenodesis was excised distally and a proximal tendinosis proximally 4 cm above the lateral malleolus was completed to the peroneus brevis with a 0 Vicryl suture. The distal 15 cm of the peroneus brevis was not viable or reconstructible due to the extensive tearing and scarring. This was debrided. The 4.5 mmx 20 cm semitendinosus allograft was trimmed down to approximately 4 mm and whipstitched at each end. A drill hole was made through the 5th metatarsal base 1st using a K-wire and checking the trajectory on fluoro to be centered in the bone this was overdrilled with a 2 9 cannulated drill followed by a 3.5 cannulated and then a 4-0 and up to a 4.8 solid drill. The allograft tendon was then brought through the drill hole from plantar to dorsal. This was secured with FiberWire to the peroneus brevis proximally about 3 cm above the lateral malleolus to be out of the groove. The tendon was then sewn back to itself with FiberWire suture using free needles with the foot held in neutral dorsiflexion neutral inversion eversion and at approximately 50% of the excursion. The reconstruction was reinforced with a 1.8 FiberTak from [employer] placed into the base of the 5th metatarsal. Closure Type: primary Specimen(s): none sent Prosthetic devices, grafts, tissues, transplants, or devices: Semi tendinosis single strand frozen irradiated allograft [employer] 1.8 knotless FiberTak with 2. Suture Estimated Blood Loss (mL): 30 Blood products transfused: none Tourniquet time (min): 93 Procedure in detail: Patient was seen in the preoperative area the site of surgery was marked informed consent confirmed this was the left ankle. The patient underwent a regional block with the anesthesia team for postoperative pain control then was brought to the operating room positioned supine. General anesthetic was administered. The patient was then rolled into a lateral decubitus position with the left side up on the beanbag. A well-padded axillary bump was placed. A well-padded thigh tourniquet was placed. All bony prominences well padded. The left lower extremity was prepped and draped in the standard sterile fashion a formal time-out procedure was performed confirming the patient's side and site of surgery administration of appropriate preoperative antibiotic. All were in agreement. Attention turned to the left lower extremity Esmarch was used for exsanguination tourniquet raised on the thigh to 250 mm of mercury. The previous incision from the level of the lateral malleolus to just proximal from the 5th metatarsal base was reopened and the scar excised. This was extended approximately 4 cm proximal to the lateral malleolus and extended to the mid shaft of the 5th metatarsal base. Meticulous care was taken on dissection. There was copious thick scarring along the incision. The peroneal retinaculum and synovium was identified proximally in the incision this was entered and then careful dissection was taken over a [place] elevator along the course of the peroneal tendons through the peroneal retinaculum and then distally to the level of the insertion of the 5th metatarsal base. Cuff of retinaculum was left at the level of the lateral malleolus for SPR repair at the end of the case. There was extensive longitudinal tearing and tendinosis of the peroneus brevis from the lateral of the lateral malleolus to the 5th metatarsal base. There were a few intact strands but there was no salvageable tendon. This was excised creating a proximally a 15 cm gap. Additionally the previous tenodesis site for the peroneus longus was excised as well this was we tenodesed proximally about 4 cm above the lateral malleolus above the peroneal groove. There was significant tenosynovitis that was debrided. And the scar tissue and torn remnants of the peroneus longus and brevis were excised. Once this was completed a K-wire was used in the base of the 5th metatarsal as an anchoring point. This was checked on intraoperative x-ray to make sure was centered in the bone. This was then overdrilled with a 2 9 cannulated drill followed by a 3.5 cannulated drill and then the solid 4.0 and 4.8 drills were used. The semitendinosus allograft was prepared this was a 4.5 mm by 20 cm graft. This was trimmed down to a proximally 4 mm and then whip stitched at each end in preparation. Then this was passed from plantar to dorsal through the hole in the 5th metatarsal base. It was secured proximally to the peroneus brevis tendon using a tendon Vann and then 2. FiberWire and then oversewn with additional 0 Vicryl. Then the foot was brought into neutral dorsiflexion and neutral inversion eversion and the allograft was then sewed back to itself completing the bone tunnel fixation. This was secured using 2-0 fiber tape. Next a FiberTak from the [employer] vendor was then drilled and then placed into the 5th metatarsal base. This was a 1.8 knotless FiberTak and this was used as an additional anchor point with the FiberTapes were brought up through the peroneus brevis allograft securing it at another point to the base of the 5th metatarsal. Once this was complete the tourniquet was released and hemostasis was achieved. The SPR was repaired using 0 Vicryl suture. The ankle was taken through a range of motion with smooth gliding of the tendon allograft. And then the rest of the peroneal retinaculum was closed with 0 Vicryl sutures. Additional deep 0 Vicryl were placed distally followed by 2-0 Vicryl 3-0 Vicryl 4-0 Monocryl and 3-0 nylon suture. Local anesthetic was injected for postoperative pain control. Patient was then placed into a well-padded splint in neutral dorsiflexion and rotation with Xeroform gauze Webril bulky Booker cotton posterior and U slab plaster and Jr wrap. The patient was awoken from anesthesia and taken to the recovery area in good condition there were no immediate complications from this procedure. Counts were correct. Complications: none Post-operative Condition: stable Disposition: PACU Plan for aftercare: Nonweightbearing in the Booker splint x2 weeks. Elevate. Touchdown is okay for balance. Pain control. Aspirin for DVT prophylaxis. Follow up in [facility]opedic Clinic in 2 weeks for incision check at which time we will go into a boot. No inversion or eversion for 8 weeks. But can start protected weight-bearing in the boot at 2-3 week follow up.
[2024-12-24 15:17] VITALS: BP 138/79; PULSE 81; RESP 12; TEMP 36.2; O2SAT 96
[2024-12-24 15:24] VITALS: BP 137/80; PULSE 80; RESP 18; TEMP 36.3; O2SAT 97
== END 2024-12-24 16:00 | disposition home or self-care (01) ==
PROVIDERS: PCP Family Medicine; Referring Provider Orthopaedic Surgery Foot and Ankle Surgery; Visit Provider Orthopaedic Surgery Foot and Ankle Surgery
PROC: (CPT 27685; principal; 2024-12-24 11:45)
DX: S86.312A Strain of muscle(s) and tendon(s) of peroneal muscle group at lower leg level, left leg, initial encounter (principal); M76.72 Peroneal tendinitis, left leg; M72.2 Plantar fascial fibromatosis; G89.18 Other acute postprocedural pain; M65.862 Other synovitis and tenosynovitis, left lower leg; Z98.890 Other specified postprocedural states; D64.9 Anemia, unspecified
CPT/HCPCS: 27675; 64450; 73620; 76000; C1713; J0690; J1100; J1885; J2250; J2405; J2704; J3010; J3410

== ENCOUNTER → 2025-01-12 11:24 | Outpatient (CLI) | payer MEDICARE, SELFPAY ==
--- NOTE | 2025-01-12 11:26 | DI.CT.S_ITS ---
PROCEDURE: CT THORACIC SPINE WO CON INDICATIONS: right med/lower back pain TECHNIQUE: Noncontrast 3 mm thick sections acquired through the region of interest in the thoracic spine. Sagittal and coronal reformats were then constructed. For radiation dose reduction, the following was used: automated exposure control. COMPARISON: None. FINDINGS: Image quality: Excellent. Bones: There is normal overall bony alignment. No acute vertebral body compression fractures. No suspicious sclerotic or lytic bony lesions. Central spinal canal is of normal overall caliber. Mild to moderate multilevel degenerative endplate changes. Mild degenerative changes are seen in the lower cervical spine. Soft tissues: No paravertebral masses or hematomas. Visualized posteromedial lungs appear clear. Status post cholecystectomy. Moderate hiatal hernia. Left renal hypoattenuating lesions most likely cysts. Skin marker is seen at the right lower back are lying the lateral aspect of the 12th rib. IMPRESSION: 1. No acute osseous abnormality. 2. [id number] thoracic spondylosis. 3. Moderate hiatal hernia. Approved by: Deni Tabares M.D. on 01/12/2025 at 13:26
== END ==
PROVIDERS: PCP Family Medicine; Referring Provider Family Medicine; Visit Provider Family Medicine
DX: M47.814 Spondylosis without myelopathy or radiculopathy, thoracic region (principal); K44.9 Diaphragmatic hernia without obstruction or gangrene; M54.9 Dorsalgia, unspecified
CPT/HCPCS: 72128

== ENCOUNTER → 2025-02-11 19:23 | Outpatient (CLI) | payer MEDICARE, SELFPAY ==
--- NOTE | 2025-02-11 19:25 | DI.MRI.S_ITS ---
PROCEDURE: MRFOOT LT WO CON INDICATIONS: foot mass TECHNIQUE: Multiphasic, multisequence MRI of the forefoot was performed, without intravenous contrast administration. COMPARISON: [facility], CR, XR FOOT LT 2V, 12/24/2024, 13:50. [facility], MR, MR ANKLE LT WO CON, 12/01/2024, 12:52. [facility], MR, MR FOOT LT WO CON, 07/11/2024, 12:27. FINDINGS: Image quality: Excellent. Bones and joints: Screw fixation of the 5th metatarsal base, partially visualized. Multifocal degenerative changes of the tarsometatarsal joint, most pronounced and severe at the 2nd tarsometatarsal joint, where there is joint space narrowing, osteophytosis, and extensive subchondral marrow edema. Soft tissues: The visualized plantar fascia is unremarkable. Small amount of fluid at the master knot of Yonny. The flexor tendons are otherwise unremarkable. The extensor tendons are unremarkable. Diffuse mild muscle edema with severe fatty atrophy, nonspecific. Moderate subcutaneous edema of the foot, most pronounced in the dorsal foot. No drainable fluid collection. Intermediate signal of the Lisfranc ligament, likely representing mild sprain. 6 mm ganglion cyst dorsal to the 2nd metatarsal base. Mild 1st, 2nd, and 3rd intermetatarsal bursitis. IMPRESSION: 1. Screw fixation of the 5th metatarsal base, partially visualized. 2. Severe degenerative changes of the tarsometatarsal joints. 3. Mild sprain of the Lisfranc ligament. 4. 6 mm ganglion cyst dorsal to the 2nd metatarsal base. 5. Moderate subcutaneous edema of the foot. Dictated by: Nicolle Gross M.D. on 02/12/2025 at 9:25 Approved by: Nicolle Gross M.D. on 02/12/2025 at 9:38
== END ==
PROVIDERS: PCP Family Medicine; Referring Provider Orthopaedic Surgery Foot and Ankle Surgery; Visit Provider Orthopaedic Surgery Foot and Ankle Surgery
DX: S86.312A Strain of muscle(s) and tendon(s) of peroneal muscle group at lower leg level, left leg, initial encounter (principal); M67.472 Ganglion, left ankle and foot; M71.572 Other bursitis, not elsewhere classified, left ankle and foot; M25.475 Effusion, left foot; X58.XXXA Exposure to other specified factors, initial encounter
CPT/HCPCS: 73718

== ENCOUNTER → 2025-03-10 17:27 | Outpatient (CLI) | payer MEDICARE, SELFPAY ==
--- NOTE | 2025-03-10 | DI.MRI.S_ITS ---
PROCEDURE: MR ENTEROGRAPHY PROTOCOL INDICATIONS: anemia, abd pain TECHNIQUE: After the ingestion of oral contrast, coronal and axial HASTE, coronal 2-D FLASH in-and [id number] sequences. After the administration of contrast, coronal and axial VIBE or 2-D FLASH with fat saturation sequences acquired through the abdomen and pelvis. Optional diffusion weighted imaging and ADC may be performed. COMPARISON: None. FINDINGS: Image quality: Diagnostic Lower chest: Unremarkable lung bases Liver: Small right lobe cyst Gallbladder and biliary system: Gallbladder is absent. CBD measures 5-6 mm distally. Pancreas: Mild parenchymal atrophy. No ductal dilation Spleen: Nonenlarged Adrenals: No discrete nodules Kidneys: There are renal cysts. No solid mass. No hydronephrosis Vessels and lymph nodes: No pathologic lymph nodes by size criteria. No abdominal aortic aneurysm Bowel and peritoneum: No terminal ileitis. No active colitis. Colonic diverticula are seen. No pathologic ascites or abscess. No perianal abscess. Body wall: Unremarkable Pelvis: Bladder is unremarkable. Heterogeneous prostate enhancement, not well assessed on this study. Bones: No active inflammation at the sacroiliac joints. Mild lumbosacral degenerative changes. IMPRESSION: No active inflammation identified in the abdomen/pelvis. No bowel obstruction. No pathologic ascites or drainable abscess. No significant hematoma. Other incidental and nonacute findings above. Dictated by: Juancho Menchaca M.D. on 03/11/2025 at 9:57 Approved by: Juancho Menchaca M.D. on 03/11/2025 at 10:01
== END ==
LOC: MRI 17:28
PROVIDERS: PCP Family Medicine; Referring Provider Physician Assistant; Visit Provider Physician Assistant
DX: D50.8 Other iron deficiency anemias (principal); R10.84 Generalized abdominal pain; K76.89 Other specified diseases of liver; Z90.49 Acquired absence of other specified parts of digestive tract; N28.1 Cyst of kidney, acquired; K57.90 Diverticulosis of intestine, part unspecified, without perforation or abscess without bleeding; M47.817 Spondylosis without myelopathy or radiculopathy, lumbosacral region
CPT/HCPCS: 72197; 74183; A9579

== ENCOUNTER → 2025-04-24 12:14 | Outpatient (CLI) | payer MEDICARE, SELFPAY ==
--- NOTE | 2025-04-24 12:15 | DI.CT.S_ITS ---
PROCEDURE: CT ABDOMEN PELVIS W CON INDICATIONS: flank pain TECHNIQUE: After the administration of intravenous contrast, axial sections acquired from the lung bases to the pubic symphysis. Coronal and sagittal reformats were performed. For radiation dose reduction, the following was used: automated exposure control, adjustment of mA and/or kV according to patient size. COMPARISON: None. FINDINGS: Image quality: Diagnostic. Lower Chest: Moderate hiatal hernia. ABDOMEN: Liver: No solid mass. Scattered subcentimeter hypoattenuating lesions, too small to characterize by CT but probably small cysts. Gallbladder: Absent. Biliary ducts: No intrahepatic or extrahepatic biliary dilation, accounting for a post cholecystectomy state. Pancreas: No ductal dilation. Spleen: Size is within normal limits. Adrenal Glands: No adrenal nodules. Kidneys and Ureters: No hydronephrosis. No solid mass. No complex renal cystic lesion which requires follow up. Stomach and Bowel: Normal colonic caliber, without significant wall thickening. Colonic diverticulosis without evidence of diverticulitis. Peritoneum: No abnormal intraperitoneal fluid. No free air. Ventral Wall: No significant ventral hernia. Abdominal Nodes: No retroperitoneal or mesenteric adenopathy by size criteria. Vessels: Aorta and inferior vena cava are normal in size. PELVIS: Pelvic Organs: Unremarkable. Bladder: No bladder wall thickening, accounting for underdistention. Pelvic Nodes: No enlarged lymph nodes. Miscellaneous: Moderate left inguinal hernia containing fat. This is indirect. Bones: No aggressive osseous abnormality. Degenerative disc disease of the lumbar spine. IMPRESSION: Colonic diverticulosis without evidence of diverticulitis. Moderate hiatal hernia. Moderate left inguinal hernia containing fat. Dictated by: Magdaleno Yanez M.D. on 04/24/2025 at 18:48 Approved by: Magdaleno Yanez M.D. on 04/24/2025 at 18:50
== END ==
LOC: CT 12:14
PROVIDERS: PCP Family Medicine; Referring Provider Physician Assistant; Visit Provider Physician Assistant
DX: K57.90 Diverticulosis of intestine, part unspecified, without perforation or abscess without bleeding (principal); K40.90 Unilateral inguinal hernia, without obstruction or gangrene, not specified as recurrent; K44.9 Diaphragmatic hernia without obstruction or gangrene; M51.369 Other intervertebral disc degeneration, lumbar region without mention of lumbar back pain or lower extremity pain; R10.32 Left lower quadrant pain; D50.9 Iron deficiency anemia, unspecified; R10.9 Unspecified abdominal pain; Z90.49 Acquired absence of other specified parts of digestive tract
CPT/HCPCS: 74177; Q9967